=== PATIENT | male | born 1950 | race African-American/Black ===

== ENCOUNTER 2023-01-07 19:15 | Inpatient (IN) | payer OTHER ==
[2023-01-07 19:56] LABS: #Eosinphils 0.1 10x3/uL (0.0-0.5); #Monocytes 0.4 10x3/uL (0.0-1.1); #Neutrophils 3.1 10x3/uL (1.5-8.4); %Basophils 0.4 % (0.0-2.0); %Eosinophils 2.5 % (0.0-6.0); %Lymphocytes 23.6 % (18.0-47.0); %Monocytes 8.2 % (0.0-10.0); %Neutrophils 65.1 % (40.0-75.0); Hemoglobin 10.3 g/dL (13.5-17.5); Mean Corpuscular HGB CONC 31.9 g/dL (32.0-36.0); Mean Corpuscular Hemoglobin 28.3 pg (27.0-33.0); Mean Corpuscular Volume 88.7 fl (81.2-95.1); Mean Platelet Volume 9.8 fl (7.4-10.4); Platelet Count 173 10x3/uL (150-450); RBC Distribution Width 12.7 % (11.5-14.5); Red Blood Cell (RBC) Count 3.64 10x6/uL (4.32-5.72); White Blood Cell (WBC) Count 4.8 10x3/uL (3.5-10.5)
[2023-01-07 20:06] LABS: ALT (SGPT) 10 U/L (8-55); AST (SGOT) 38 U/L (5-34); Albumin 3.8 g/dL (3.4-4.8); Alkaline Phosphatase 64 U/L (40-110); Anion Gap 19 mmol/L (10-20); BUN (Urea Nitrogen) 24 mg/dL (8.4-25.7); Bilirubin, Total 0.5 mg/dL (0.2-1.2); Calc. Creatinine Clearance 0 mL/min (70-130); Calcium 8.8 mg/dL (7.8-10.44); Carbon Dioxide 18 mmol/L (23-31); Chloride 106 mmol/L (98-107); Estimated GFR 43; Glucose 121 mg/dL (83-110); Potassium 3.9 mmol/L (3.5-5.1); Protein, Total 7.8 g/dL (5.8-8.1); Sodium 139 mmol/L (136-145)
[2023-01-07 20:28] LABS: CKMB 7.7 ng/mL (0-6.6)
[2023-01-07] MEDS ORDERED: Metoprolol Tartrate 5 MG/5 ML VIAL ONE (22:29)
[2023-01-07] MEDS ORDERED: Aspirin Chewable 81 MG TAB ONE (22:29)
[2023-01-07 23:29] VITALS: BMI 36.8
[2023-01-08] MEDS ORDERED: Nitroglycerin 0.4 MG TAB (25 Tab Bottle) SL PRN ×2 (00:10→13:59)
[2023-01-08] MEDS: Nitroglycerin 2% Ointment 1 INCH/1 GM Packet TOP SCH ×2 (00:31→12:20)
[2023-01-08] MEDS: Sodium Chloride 0.9% 1,000 ML IV SCH ×2 (00:31→14:47)
[2023-01-08 01:30] LABS: Amphetamine Not Detected (NotDetected); Barbiturates Screen Not Detected (NotDetected); Benzodiazepine Screen Not Detected (NotDetected); Cocaine Metabolite Screen Not Detected (NotDetected); Methadone Not Detected (NotDetected); Methamphetamine Not Detected (NotDetected); Opiate Screen Not Detected (NotDetected); Oxycodone Screen Not Detected (NotDetected); Phencyclidine (PCP) Not Detected (NotDetected); THC/Cannabinoid Screen Not Detected (NotDetected); Tricyclic Screen Not Detected (NotDetected)
[2023-01-08 05:02] LABS: #Eosinphils 0.1 10x3/uL (0.0-0.5); #Monocytes 0.8 10x3/uL (0.0-1.1); #Neutrophils 2.5 10x3/uL (1.5-8.4); %Basophils 0.5 % (0.0-2.0); %Eosinophils 2.1 % (0.0-6.0); %Lymphocytes 39.4 % (18.0-47.0); %Monocytes 13.8 % (0.0-10.0); Hemoglobin 9.8 g/dL (13.5-17.5); Mean Corpuscular HGB CONC 31.5 g/dL (32.0-36.0); Mean Corpuscular Hemoglobin 27.8 pg (27.0-33.0); Mean Corpuscular Volume 88.1 fl (81.2-95.1); Mean Platelet Volume 9.7 fl (7.4-10.4); Platelet Count 191 10x3/uL (150-450); RBC Distribution Width 12.9 % (11.5-14.5); Red Blood Cell (RBC) Count 3.53 10x6/uL (4.32-5.72); White Blood Cell (WBC) Count 5.6 10x3/uL (3.5-10.5)
[2023-01-08 05:13] LABS: Anion Gap 13 mmol/L (10-20); BUN (Urea Nitrogen) 23 mg/dL (8.4-25.7); Calc. Creatinine Clearance 75 mL/min (70-130); Calcium 8.8 mg/dL (7.8-10.44); Carbon Dioxide 21 mmol/L (23-31); Chloride 107 mmol/L (98-107); Estimated GFR 52; Glucose 99 mg/dL (83-110); Magnesium 2.1 mg/dL (1.6-2.6); Sodium 137 mmol/L (136-145)
[2023-01-08 05:27] LABS: Troponin I 23.833 ng/mL (< 0.028)
[2023-01-08 05:55] LABS: Cardiac Risk 3.9 (Less than 4.5); Cholesterol 136 mg/dl (< 200 Desired); HDL Cholesterol 35 mg/dL (>60 Neg Risk); LDL Cholesterol, Calculated 89 mg/dL; Triglycerides 58 mg/dL (Less than 150)
[2023-01-08] MEDS ORDERED: Aspirin Chewable 81 MG TAB PO SCH (09:00)
[2023-01-08] MEDS ORDERED: Communication Order-Pharmacy FS SCH (09:15)
[2023-01-08 09:35] VITALS: TEMP 98.3
[2023-01-08] MEDS ORDERED: Iopamidol 300 61% 100 ML VIAL FS ONE (10:05)
[2023-01-08] MEDS ORDERED: Nitroglycerin 50 MG/250 ML BOT 0 ML ONE (10:32)
[2023-01-08] MEDS ORDERED: Heparin 10,000 UNITS/ 10 ML VIAL ONE (10:32)
[2023-01-08] MEDS ORDERED: Adenosine 6 MG/2 ML VIAL ONE (10:32)
[2023-01-08] MEDS ORDERED: Lidocaine 1% (PF) 30 ML VIAL ONE (10:32)
[2023-01-08] MEDS ORDERED: Sodium Chloride 0.9% 1,000 ML ONE (10:33)
[2023-01-08] MEDS ORDERED: Fentanyl 100 MCG/2 ML VIAL ONE (10:59)
[2023-01-08] MEDS ORDERED: Midazolam HCl 2 mg/2 ml Vial ONE (11:00)
[2023-01-08] MEDS ORDERED: Acetaminophen/Codeine 30-300mg Tablet PO PRN ×2 (13:59)
[2023-01-08] MEDS ORDERED: Sodium Chloride 0.9% 200 ML IV PRN (13:59)
[2023-01-08] MEDS ORDERED: Sodium Chloride 0.9% 1,000 ML IV SCH (14:02)
[2023-01-08 16:13] VITALS: BP 150/90
[2023-01-08] MEDS ORDERED: Carvedilol 6.25 MG TAB PO SCH (17:00)
[2023-01-08] MEDS ORDERED: Ferrous Sulfate 325 MG TAB PO SCH (17:00)
[2023-01-08] MEDS ORDERED: Atorvastatin Calcium 20 MG TAB PO SCH (21:00)
[2023-01-09] MEDS ORDERED: Multivitamin W/ Minerals 1 TAB PO SCH (09:00)
== END 2023-01-08 17:05 | disposition short-term general hospital (02) | DRG 280 ==
LOC: EEVIPCON 19:15 → CSHERS 19:15 → OBSVTOIN 23:21 → CSHTELE 23:21
PROVIDERS: ADMIT Family Medicine; ATTEND Nurse Practitioner Family
PROC: 4A023N7 Measurement of Cardiac Sampling and Pressure, Left Heart, Percutaneous Approach (ICD-10-PCS; principal; 2023-01-08)
PROC: B2111ZZ Fluoroscopy of Multiple Coronary Arteries using Low Osmolar Contrast (ICD-10-PCS; 2023-01-08)
PROC: B2151ZZ Fluoroscopy of Left Heart using Low Osmolar Contrast (ICD-10-PCS; 2023-01-08)
DX: I21.4 Non-ST elevation (NSTEMI) myocardial infarction (principal); J96.01 Acute respiratory failure with hypoxia; I13.0 Hypertensive heart and chronic kidney disease with heart failure and stage 1 through stage 4 chronic kidney disease, or unspecified chronic kidney disease; I25.10 Atherosclerotic heart disease of native coronary artery without angina pectoris; I50.9 Heart failure, unspecified; K74.60 Unspecified cirrhosis of liver; E11.22 Type 2 diabetes mellitus with diabetic chronic kidney disease; M10.9 Gout, unspecified; N18.30 Chronic kidney disease, stage 3 unspecified; Z79.899 Other long term (current) drug therapy; Z79.82 Long term (current) use of aspirin; Z87.891 Personal history of nicotine dependence
CPT/HCPCS: 36415; 36416; 71045; 80048; 80053; 80061; 80306; 82553; 83735; 84484; 84550; 85025; 93005; 93459; 94760; 96372; 96374; 99152; 99153; C1760; C1769; J0153; J1644; J1650; J2001; J2250; J3010; J7050

== ENCOUNTER 2023-07-01 10:29 | Emergency (ER) | payer OTHER ==
[~2023-07-01 10:29] MED LIST: Iopamidol 370 76% 100 ML VIAL ONE
[2023-07-01 11:24] LABS: #Basophils 0.1 10x3/uL (0.0-0.2); #Eosinphils 0.1 10x3/uL (0.0-0.5); #Monocytes 0.5 10x3/uL (0.0-1.1); #Neutrophils 3.2 10x3/uL (1.5-8.4); %Eosinophils 1.8 % (0.0-6.0); %Lymphocytes 24.8 % (18.0-47.0); %Monocytes 9.8 % (0.0-10.0); %Neutrophils 62.4 % (40.0-75.0); Hematocrit 34.5 % (38.8-50.0); Hemoglobin 11.2 g/dL (13.5-17.5); Mean Corpuscular HGB CONC 32.5 g/dL (32.0-36.0); Mean Corpuscular Hemoglobin 28.5 pg (27.0-33.0); Mean Corpuscular Volume 87.8 fl (81.2-95.1); Mean Platelet Volume 10.5 fl (7.4-10.4); Platelet Count 216 10x3/uL (150-450); RBC Distribution Width 13.1 % (11.5-14.5); Red Blood Cell (RBC) Count 3.93 10x6/uL (4.32-5.72); White Blood Cell (WBC) Count 5.1 10x3/uL (3.5-10.5)
[2023-07-01 11:40] LABS: Actual Bicarbonate (HCO3v) 23.9 mEq/L (22-28); Base Excess -0.9 mEq/L (-2 - +2); Calcium, Ionized (venous) 1.16 mmol/L (1.16-1.32); Chloride (VBG) 110 mmol/L (98-106); Hematocrit-VBG 36 % (42.0-52.0); Hemoglobin (Hb) 12.3 g/dL (12.6-17.4); Potassium (VBG) 3.55 mmol/L (3.70-5.30); Puncture Site Other Site; Sodium 143 mmol/L (133-146)
[2023-07-01] MEDS ORDERED: Ondansetron PF 4 MG/2 ML Vial ONE (11:52)
[2023-07-01] MEDS ORDERED: Furosemide 40 MG/4 ML VIAL ONE ×2 (11:52→13:16)
[2023-07-01] MEDS ORDERED: Ipratropium/Albuterol 3 ML NEB ONE (11:52)
[2023-07-01] MEDS ORDERED: hydrALAZINE 20 MG/ML VIAL ONE ×2 (11:52→13:16)
[2023-07-01 11:55] LABS: ALT (SGPT) 7 U/L (8-55); AST (SGOT) 21 U/L (5-34); Albumin 3.7 g/dL (3.4-4.8); Alkaline Phosphatase 68 U/L (40-110); Anion Gap 15 mmol/L (10-20); BUN (Urea Nitrogen) 18 mg/dL (8.4-25.7); Bilirubin, Total 0.9 mg/dL (0.2-1.2); Calc. Creatinine Clearance 0 mL/min (70-130); Calcium 9.1 mg/dL (7.8-10.44); Carbon Dioxide 18 mmol/L (23-31); Chloride 109 mmol/L (98-107); Estimated GFR 50; Globulin 4.4 g/dL (2.4-3.5); Glucose 127 mg/dL (83-110); Potassium 3.8 mmol/L (3.5-5.1); Protein, Total 8.1 g/dL (5.8-8.1); Sodium 138 mmol/L (136-145)
[2023-07-01 12:01] LABS: Troponin I 0.077 ng/mL (< 0.028)
[2023-07-01] MEDS ORDERED: Labetalol HCl 100 MG/20 ML VIAL ONE (14:02)
[2023-07-01 14:14] LABS: Troponin I 0.083 ng/mL (< 0.028)
[2023-07-01 14:22] LABS: SARS-CoV-2 NAA Rapid Test Not Detected (NotDetected)
[2023-07-01] MEDS ORDERED: Nitroglycerin 50 MG/250 ML BOT 250 ML ONE (14:38)
== END 2023-07-01 19:11 | disposition short-term general hospital (02) ==
LOC: EEVIPCON 10:29 → CSHERS 10:29
DX: I16.1 Hypertensive emergency (principal); J90 Pleural effusion, not elsewhere classified; I25.10 Atherosclerotic heart disease of native coronary artery without angina pectoris; E11.22 Type 2 diabetes mellitus with diabetic chronic kidney disease; N18.6 End stage renal disease; I12.0 Hypertensive chronic kidney disease with stage 5 chronic kidney disease or end stage renal disease; Z99.2 Dependence on renal dialysis; Z79.899 Other long term (current) drug therapy; Z79.82 Long term (current) use of aspirin; Z20.822 Contact with and (suspected) exposure to COVID-19
CPT/HCPCS: 36415; 71045; 71275; 80053; 82805; 83735; 83880; 84484; 85025; 93005; 94660; 96374; 96375; J0360; J1940; J2405; J7620; Q9967; U0002